=== PATIENT | female | born 1950 | race Caucasian/White ===

== ENCOUNTER 2024-09-23 13:52 | Outpatient (AMB) | payer OTHER, SELFPAY ==
--- NOTE | 2024-09-23 14:19 | PD.ORTHCLVIS ---
Vital signs 09/23/24 14:20 Height 1.63 m Height Method Stated Weight 78.982 kg Weight Measurement Method Standing Scale BMI 29.9 BP 162/94 H Blood Pressure Source Automatic Cuff Blood Pressure Location Right Upper Arm Position Sitting Respiration 18 Pulse 64 Pulse Source Monitor Temp 98.4 F Temp Source Temporal Artery Scan Pulse Oximetry (%) 97 Oxygen Delivery Method Room Air Med/Allergies Allergies & Medications Allergies No Known Allergies Allergy (Verified 09/23/24 14:21) Medication Reconciliation ibuprofen 600 mg tablet 600 mg PO Q8H PRN pain (scale score 4-6) #15 tabs 08/05/24 [Rx Confirmed 09/23/24] Exam Exam Patient is in no acute distress and is cooperative with the examination today. Breathing is nonlabored. In no respiratory distress. Bilateral extremities were evaluated and demonstrates sensation intact to light touch. Palpable pedal pulses are present. No significant edema is present. Bilateral hips were examined. The patient has no pain with log roll of the hips. Internal rotation to 30 degrees and external rotation to 30 degrees is painless. Negative FADIR. The left knee was examined. The left knee is in varus alignment. Range of motion from 0-115 degrees. Knee is stable to varus and valgus as well as AP translation with <5mm. Patient has a negative McMurrays. There is no pain with patellofemoral compression and no crepitus noted. The knee is tender to palpation medially. The right knee was also examined. The right knee is in varus alignment. Range of motion from 0-120 degrees. Knee is stable to varus and valgus as well as AP translation with <5mm. Patient has a negative McMurrays. There is no pain with patellofemoral compression and no crepitus noted. The knee is tender to palpation medially. X-rays demonstrate bilateral knee arthritis of significant severity. These are nonweightbearing films Assessment and Plan Problem List (1) Degenerative arthritis of knee, bilateral: Status: Acute Plan: Patient is a 74-year-old female with bilateral knee pain and bilateral knee arthritis. We discussed nonoperative and operative options. Given the failure of conservative management. We discussed total knee replacement a reasonable option. She has not had bilateral knee injections and we can try this first. We would need to get authorization for this we will see her back once we get authorization Advanced Care Planning Discussion Advance care planning discussed with:: patient Office Procedures GNS Level of Care Nursing/Assessment Patient Status: Established Patient Nursing Assessment/Reassesment: Medication Reconciliation, Update PMH in EMR and Vital Signs Coordination of Care: Complex Care and Chronic Disease 1-5, Education Complex Pt/Fam, Consent,records obtained, informed consent, Results/Orders obtained and Staff clarify orders Established Patient Charge Established Patient Point Assignment: 95 Established Patient Point Charge: EP Level 3 (80-115) MA Intake Visit Data Collection New Patient or Established: Established Patient (seen at [facility] within 3 years) Reason for Visit:: BILATERAL KNEE PAIN Seen by Clinical Staff ONLY (RN/MA): No Verbal consent obtained for Telemed visit?: No Transactional Paralegal Required: No PCP or OBGYN visit in last 3 months: Yes Hx Now: No Do You Feel Safe at Home: Yes Authorities Contacted: N/A Questionairres Past Medical History Past Medical History Have you ever been diagnosed with any of the following: Neurological Problems Seizures: No Multiple Sclerosis: Yes Cardiology Problems Hypercholesterolemia: Yes Congestive Heart Failure: No Hypertension: Yes (chooses not to take meds) Respiratory Problems Chronic Obstructive Pulmonary Disease (COPD): No Stomache/Intestinal Problems Hepatitis: No Genital/Urinary Problems Renal Disease: No Musculoskeletal Problems Arthritis: Yes Endocrine Problems Diabetes Mellitus Type 1: No Diabetes Mellitus Type 2: No Other Problems Hospitalization: No Shingles: No Blood Transfusions: No Blood Transfusion Reaction: No Anesthesia Reactions: No Measles: Yes Cancer: No Subjective Visit Visit for: new patient and knee Immunization / Flu Flu Vaccine in the Last 12 Months: No Flu Vaccine Exclusion Criteria: No Exclusion Criteria History of Present Illness Chief complaint: BILATERAL KNEE PAIN Winifred is a pleasant 74-year-old female with bilateral knee pain worse on the right. We discussed nonoperative and operative options. The pain has been ongoing for over a year. She has tried Tylenol arthritis and ibuprofen. She has not had any injections. She is interested in trying it. Personal History Occupation: UNEMPLOYED Red flag PMH: none BMI Counceling provided: No Pain Pain level (0-10): 8 Pain duration: ALL DAY Pain location: inside (medial), outside (lateral), anterior and posterior Pain quality: sharp, dull and aching Pain timing: increases with activity Associated signs & symptoms: stiffness Ambulatory data Ambulatory device: cane Treatments Improvement with previous injections: No Improvement with PT: No Improvement with NSAIDS: no Review of Systems Review of Systems: All systems negative unless otherwise noted in HPI.
[2024-09-23 14:20] VITALS: BP 162/94; PULSE 64; RESP 18; TEMP 36.9; O2SAT 97; BMI 29.9
== END 2024-09-23 14:56 | disposition home or self-care (01) ==
LOC: HODSRG 13:52
PROVIDERS: PCP Nurse Practitioner Family; Referring Provider Nurse Practitioner Family; Supervising Provider Orthopaedic Surgery Adult Reconstructive Orthopaedic Surgery; Visit Provider Orthopaedic Surgery Adult Reconstructive Orthopaedic Surgery
DX: M17.0 Bilateral primary osteoarthritis of knee (principal); M25.562 Pain in left knee; M25.561 Pain in right knee; I10 Essential (primary) hypertension; E78.00 Pure hypercholesterolemia, unspecified
CPT/HCPCS: 99213; G0463

== ENCOUNTER 2024-11-11 14:08 | Outpatient (AMB) | payer OTHER, SELFPAY ==
[2024-11-11 14:26] VITALS: BP 180/90; PULSE 71; RESP 18; TEMP 36.5; O2SAT 97; BMI 29.6
--- NOTE | 2024-11-11 14:26 | ORTHONT_ITS ---
Vital signs 11/11/24 14:26 Height 1.63 m Height Method Stated Weight 78.727 kg Weight Measurement Method Standing Scale BMI 29.6 BP 180/90 H Blood Pressure Source Automatic Cuff Blood Pressure Location Left Upper Arm Position Sitting Respiration 18 Pulse 71 Pulse Source Monitor Temp 97.7 F Temp Source Temporal Artery Scan Pulse Oximetry (%) 97 Oxygen Delivery Method Room Air Med/Allergies Allergies & Medications Allergies No Known Allergies Allergy (Verified 11/11/24 14:30) Medication Reconciliation ibuprofen 600 mg tablet 600 mg PO Q8H PRN pain (scale score 4-6) #15 tabs 08/05/24 [Rx Confirmed 11/11/24] Exam Exam Patient is in no acute distress and is cooperative with the examination today. Breathing is nonlabored. In no respiratory distress. Bilateral extremities were evaluated and demonstrates sensation intact to light touch. Palpable pedal pulses are present. No significant edema is present. Bilateral hips were examined. The patient has no pain with log roll of the hips. Internal rotation to 30 degrees and external rotation to 30 degrees is painless. Negative FADIR. The left knee was examined. The left knee is in varus alignment. Range of motion from 0-115 degrees. Knee is stable to varus and valgus as well as AP translation with <5mm. Patient has a negative McMurrays. There is no pain with nguyen llofemoral compression and no crepitus noted. The knee is tender to palpation medially. The right knee was also examined. The right knee is in varus alignment. Range of motion from 0-120 degrees. Knee is stable to varus and valgus as well as AP translation with <5mm. Patient has a negative McMurrays. There is no pain with patellofemoral compression and no crepitus noted. The knee is tender to palp ation medially. X-rays demonstrate bilateral knee arthritis of significant severity. Assessment and Plan Problem List (1) Degenerative arthritis of knee, bilateral: Status: Acute Plan: Patient is a 74-year-old female with bilateral knee pain and bilateral knee arthritis. The right knee pain is affecting her quality life and happiness. We thus discussed total knee replacement as a reasonable option The nature and purpose of the total knee replacement, alternative method(s) of treatment, the material risks involved, and the possibility of complications were fully explained to the patient. The patient does NOT have any of the following contraindications to TKA: - Active infection of the knee joint, OR - Active systemic bacteremia, OR - Active skin infection or open wound at surgical site, OR - Neuropathic arthritis, OR - Severe, rapidly progressive neurological disease, OR - Severe medical condition that makes risks of surgery outweigh the potential benefit The patient was told the most common risks and complications associated with a total knee replacement include, but are not limited to: blood clots in the leg, fatal pulmonary embolism, dislocation of the prosthesis, intraoperative and postoperative fractures of the femur or tibia, infection, failure of the prosthesis or grafting materials, complications from anesthesia, reactions to blood transfusions, postoperative leg length inequality, instability of the knee replacement, nerve damage or injury, vascular injury, delayed wound healing, infection, other injury or even . In addition, there are risks associated with anesthesia given during this operation. Also, the patient was told that after undergoing a total knee replacement there may still be persistent pain or disability. The patient was informed that the success of this operation in part depends upon the mechanical devices which are going to be implanted and that these devices can fail or malfunction, and may need to be repaired or replaced and there are no guarantees as to the longevity of this device or its parts and that it or its parts could fail prematurely. The patient was also notified that during the course of surgery, there may be a need to use bone graft from donors, and that any bone graft used will be carefully screened for communicable diseases, including AIDS, hepatitis, Wilfrid-Creutzfeldt, or other diseases, but despite the screening procedures, there is a small chance that they could contract one of these diseases. Finally, the patient was asked to follow completely and fully with all advice and recommended treatments, and that recovery and ultimate outcome are affected by their compliance with recommended treatment. We discussed the risks, benefits and treatment alternatives, and the patient is interested in proceeding with surgery. We will try to set this up as expeditiously as possible. Advanced Care Planning Discussion Advance care planning discussed with:: patient Office Procedures GNS Level of Care Nursing/Assessment Patient Status: Established Patient Nursing Assessment/Reassesment: Medication Reconciliation, Update PMH in EMR and Vital Signs Coordination of Care: Complex Care and Chronic Disease 1-5, Education Complex Pt/Fam, Consent,records obtained, informed consent, Results/Orders obtained and Staff clarify orders Established Patient Charge Established Patient Point Assignment: 95 Established Patient Point Charge: EP Level 3 (80-115) MA Intake Visit Data Collection New Patient or Established: Established Patient (seen at [facility] within 3 years) Reason for Visit:: PRE OP R TKA Seen by Clinical Staff ONLY (RN/MA): No PCP or OBGYN visit in last 3 months: Yes Hx Now: No Do You Feel Safe at Home: Yes Authorities Contacted: N/A Questionairres Past Medical History Past Medical History Have you ever been diagnosed with any of the following: Neurological Problems Seizures: No Multiple Sclerosis: Yes Cardiology Problems Hypercholesterolemia: Yes Congestive Heart Failure: No Hypertension: Yes (chooses not to take meds) Respiratory Problems Chronic Obstructive Pulmonary Disease (COPD): No Stomache/Intestinal Problems Hepatitis: No Genital/Urinary Problems Renal Disease: No Musculoskeletal Problems Arthritis: Yes Endocrine Problems Diabetes Mellitus Type 1: No Diabetes Mellitus Type 2: No Other Problems Hospitalization: No Shingles: No Blood Transfusions: No Blood Transfusion Reaction: No Anesthesia Reactions: No Measles: Yes Cancer: No Subjective Visit Visit for: follow up visit and knee Immunization / Flu Flu Vaccine in the Last 12 Months: No Flu Vaccine Exclusion Criteria: No Exclusion Criteria History of Present Illness Chief complaint: BILATERAL KNEE PAIN Winifred is a pleasant 74-year-old female with bilateral knee pain worse on the right. We discussed nonoperative and operative options. The pain has been ongoing for over a year. She has tried Tylenol arthritis and ibuprofen. Personal History Occupation: UNEMPLOYED Red flag PMH: none BMI Counceling provided: No Pain Pain level (0-10): 8 Pain duration: ALL DAY Pain location: inside (medial), outside (lateral) and anterior Pain quality: dull and aching Pain timing: night, increases with activity and stairs Associated signs & symptoms: stiffness Ambulatory data Ambulatory device: none Treatments Improvement with previous injections: No Improvement with PT: No Improvement with NSAIDS: no Review of Systems Review of Systems: All systems negative unless otherwise noted in HPI.
== END 2024-11-11 14:43 | disposition home or self-care (01) ==
LOC: HODSRG 14:08
PROVIDERS: PCP Family Medicine; Referring Provider Family Medicine; Supervising Provider Orthopaedic Surgery Adult Reconstructive Orthopaedic Surgery; Visit Provider Orthopaedic Surgery Adult Reconstructive Orthopaedic Surgery
DX: M17.0 Bilateral primary osteoarthritis of knee (principal); M25.562 Pain in left knee; M25.561 Pain in right knee; I10 Essential (primary) hypertension; E78.00 Pure hypercholesterolemia, unspecified; G35 Multiple sclerosis
CPT/HCPCS: 99213; G0463

== ENCOUNTER → 2024-11-11 | Outpatient (CLI) | payer OTHER, MEDICAID, SELFPAY ==
--- NOTE | 2024-11-11 | XR_ITS ---
Examination: CT right lower extremity, without contrast. 2-D sagittal reconstructions. 2-D coronal reconstructions. 3-D reconstructions. Date and time of exam:November 11, 2024 1717 hrs. Indications: Diagnosis right knee osteoarthritis, knee pain beginning 2014 CTDI: vol (mGy):11.8 DLP: (mGycm):564 Technique: Multiple 1.25 mm axial sections of the right lower extremity without intravenous contrast have been obtained. 2-D sagittal and coronal reconstructions have been obtained. 3-D reconstructions have been obtained. Low dose protocols were performed. One or more of the following dose reduction techniques were used; automated exposure control, adjustment of the mA and/or KV according to patient size, use of iterative reconstruction technique. Findings: Prominent osteopenia Mild narrowing right hip joint No right hip fracture or dislocation Advanced right knee tricompartment osteoarthritis, severe narrowing patellofemoral joint, moderate to severe narrowing medial joint space No fracture Impression: Advanced right knee tricompartment osteoarthritis including severe narrowing patellofemoral joint
== END | disposition home or self-care (01) ==
LOC: CDIM 15:19
PROVIDERS: PCP Family Medicine; Referring Provider Orthopaedic Surgery Adult Reconstructive Orthopaedic Surgery; Visit Provider Orthopaedic Surgery Adult Reconstructive Orthopaedic Surgery
DX: M17.11 Unilateral primary osteoarthritis, right knee (principal); M25.861 Other specified joint disorders, right knee
CPT/HCPCS: 73700

== ENCOUNTER → 2024-11-24 | Day surgery (SDC) | payer OTHER, MEDICAID, SELFPAY ==
[2024-11-19 09:42] LABS: Basophils # (Auto) 0.1 Thou/mm3 (0.0-0.2); Basophils % (Auto) 1 % (0-2.5); Eosinophils # (Auto) 0.2 Thou/mm3 (0.0-0.5); Eosinophils % (Auto) 2 % (0-10); Hemoglobin 15.4 g/dL (12.0-16.0); Immature Granulocytes % (Auto) 0 % (0-0); Immature Granulocytes Auto 0.03 Thou/mm3 (0.00-0.00); Lymphocytes # (Auto) 3.2 Thou/mm3 (1.0-4.8); Lymphocytes % (Auto) 40 % (10-50); Mean Corpuscular HGB Conc 34.2 g/dl (31.0-37.0); Mean Corpuscular Volume 88 fL (80-100); Monocytes # (Auto) 0.8 Thou/mm3 (0.0-0.8); Monocytes % (Auto) 10 % (0-12); Neutrophils # (Auto) 3.9 Thou/mm3 (1.8-7.7); Neutrophils % (Auto) 48 % (37-80); Nucleated Red Blood Cell % 0 /100 WBC (0); Platelet Count 259 Thou/mm3 (140-440); RDW Standard Deviation 39.1 fL (36.4-46.3); Red Blood Count 5.13 Miln/mm3 (4.00-5.20); White Blood Count 8.1 Thou/mm3 (3.6-11.0)
[2024-11-19 09:55] LABS: Partial Thromboplastin Time 27.8 Seconds (22.0-36.0); Prothrombin Time 11.1 Seconds (9.0-12.2)
[2024-11-19 09:56] LABS: Alanine Aminotransferase 26 U/L (10-49); Albumin, Serum 4.3 gm/dL (3.4-4.8); Albumin/Globulin Ratio 1.5 (1.2-2.2); Alkaline Phosphatase 56 U/L (46-116); Anion Gap 5 (7-16); Aspartate Amino Transferase 23 U/L (0-34); BUN/Creatinine Ratio 12 Ratio (12-20); Bilirubin,Total 0.5 mg/dL (0.3-1.2); Blood Urea Nitrogen 11 mg/dL (9-23); Calcium 10.1 mg/dL (8.3-10.6); Calcium (Corrected) 10.1 mg/dL (8.5-10.1); Carbon Dioxide 30.2 mMol/L (20.0-31.0); Chloride 107 mMol/L (98-107); Creatinine (Component) 0.9 mg/dL (0.6-1.3); Estimated Creatinine Clearance 57.6 mL/min (>60); Globulin 2.8 gm/dL (2.3-3.5); Glucose 105 mg/dL (74-106); Osmolality,Calculated 282 (275-295); Sodium 142 mMol/L (136-145); Total Protein 7.1 gm/dL (5.7-8.2); eGFR > 60 See Note
[2024-11-24 06:25] VITALS: BP 207/103; PULSE 58; RESP 16; TEMP 36.7; O2SAT 97; BMI 29.7
[2024-11-24] MEDS: MELOXICAM 7.5 MG TABLET PO (06:38)
[2024-11-24] MEDS: PREGABALIN 75 MG CAPSULE PO (06:38)
[2024-11-24] MEDS: ACETAMINOPHEN 325 MG TABLET 650 MG PO (06:38)
[2024-11-24] MEDS: RINGERS LACTATED 1000 ML 1,000 ML 20 ML IV (06:40)
--- NOTE | 2024-11-24 07:30 | SUR.PREOP ---
Procedure cancelled by Dr. Jackson and Dr. Ignacio due to high BP. Patient states her BP always runs high and that her primary care doctor is aware. States she had been prescribed something for her high BP but that she doesn't take it because she doesn't like the way it makes her feel. States that her PCP is also aware of this and that she chooses to drink beet juice for her BP instead. Dr. Ignacio and Dr. Jackson both made her aware that she needs to see her PCP to be referred to a wheel and pinion inspector regarding her high BP. Acknowledged physicians instructions and agrees to see her PCP for referral and clearance.
--- NOTE | 2024-11-24 07:35 | PD.ORTHPN ---
Exam Vital Signs Temp Pulse Resp BP Pulse Ox 98.1 F 58 L 16 207/103 H 97 11/24/24 06:25 11/24/24 06:25 11/24/24 06:25 11/24/24 06:25 11/24/24 06:25 Objective - Ortho Labs 11/19/24 09:25 11/19/24 09:25 Assessment & Plan Diagnosis (1) Hypertension: Status: Acute Assessment Additional comments: Patient is a 74yo female scheduled for a r TKA. Her blood pressure was found to be over 190-200 over 100s. We discussed that she needs to see her PCP and a cardiolgist as it is significantly high. We discussed she should go to the ER should she have blurry vision, headaches, or any pain. Anesthesia did not feel comfortable proceeding with elective surgery at this blood pressure.
--- NOTE | 2024-11-24 12:10 | ESPR_ITS ---
Documentation for date of: 11/24/24 BRIEF ANESTHESIA PRE-OP NOTE: This patient was scheduled for R TKA with Dr Ignacio today but it was cancelled due to significantly high BP. Pre-op, she has h/o chronic HTN and she reported she does not take any anti-HTN meds. Her pre-op BP by RN was 207/103 checked at forearm. She has h/o L arm surgery and she reported BP cuff gets too tight on her right arm and was hesitant to get it checked there. I attempted to check it at R and L forearm and the machine would pressure up to 240s and then not give a reading. Her BP at the surgeon's office in last month is documented at 180/90. She denied any chest pains/pressure, headache, endorsed feeling slight anxious due to upcoming surgery, but was she was otherwise alert, NAD, grossly non-focal. Her family visitor was at bedside. I discussed her BP with the surgeon and offered to provide sedation then re- check her BP, then the surgeon also came and assessed the patient with her visitor at bedside, and all together decided to cancel her surgery and the surgeon instructed the patient to see PCP and mentioned getting cardiac clearance. I educated the patient that uncontrolled BP could pose risk to her health including risk of stroke and heart attack and she should see her PCP for anti- HTN meds and she should consider going to ER if she feels symptoms from her high BP which I educated her about and she and her visitor at bedside agreed with the cancellation and the follow up. Lazaro Jackson MD Anesthesia Progress Note Progress Note Most recent Vital Signs: Last Vital Signs Temp 98.1 F 11/24/24 06:25 Pulse 58 L 11/24/24 06:25 Resp 16 11/24/24 06:25 BP 207/103 H 11/24/24 06:25 Pulse Ox 97 11/24/24 06:25
== END | disposition home or self-care (01) ==
LOC: S2EX 05:49
PROVIDERS: Anesthesiology; PCP Family Medicine; Referring Provider Orthopaedic Surgery Adult Reconstructive Orthopaedic Surgery; Visit Provider Orthopaedic Surgery Adult Reconstructive Orthopaedic Surgery
PROC: (CPT 27447; principal; 2024-11-24 07:30)
DX: M17.0 Bilateral primary osteoarthritis of knee (principal); I10 Essential (primary) hypertension; Z53.9 Procedure and treatment not carried out, unspecified reason
CPT/HCPCS: 27447; 36415; 80053; 85025; 85610; 85730; J0690; J1100; J2704; J2795; J7120; J7999; A9270

== ENCOUNTER → 2025-01-16 | Outpatient (CLI) | payer OTHER, MEDICAID, SELFPAY ==
--- NOTE | 2025-01-16 13:40 | XR_ITS ---
Examination: Bone densitometry Date and time of exam:January 16, 2025 1339 hours INDICATIONS: Menopause age 54 Technique: Lumbar spine and hip total bone mineralization values of an calculated. Peak reference and age match control results have been displayed. Findings: Lumbar spine total bone mineralization is1.117 gm/cm2. This is 0.6 standard deviations above peak reference. This is 2.9 standard deviations above age-matched controls. Hip total bone mineralization is 0.877 gm/cm2 This is 0.5 standard deviations below peak reference. This is 1.1 standard deviations above age-matched controls Impression: There is normal mineralization based on lumbar spine measurements. There is osteopenia based on hip measurements Lumbar mineralization is increased 1.7% compared with March 28, 2019 Hip mineralization is increased 1.6% compared with March 28, 2019
== END | disposition home or self-care (01) ==
LOC: CDIM 13:07
DX: Z13.820 Encounter for screening for osteoporosis (principal); M85.88 Other specified disorders of bone density and structure, other site
CPT/HCPCS: 77080

== ENCOUNTER 2025-03-05 09:19 | Outpatient (AMB) | payer OTHER, SELFPAY ==
[2025-03-05 09:53] VITALS: BP 135/85; PULSE 80; RESP 18; TEMP 36.3; O2SAT 96; BMI 29.9
--- NOTE | 2025-03-05 09:53 | ORTHONT_ITS ---
Vital signs 03/05/25 09:53 Height 1.63 m Height Method Stated Weight 79.435 kg Weight Measurement Method Standing Scale BMI 29.9 BP 135/85 H Blood Pressure Source Automatic Cuff Blood Pressure Location Right Lower Arm Position Sitting Respiration 18 Pulse 80 Pulse Source Monitor Temp 97.3 F Temp Source Temporal Artery Scan Pulse Oximetry (%) 96 Oxygen Delivery Method Room Air Med/Allergies Allergies & Medications Allergies No Known Allergies Allergy (Verified 03/05/25 09:58) Medication Reconciliation acetaminophen 500 mg tablet (Acetaminophen Extra Strength) 500 mg PO Q6H PRN pain 11/19/24 [History Confirmed 03/05/25] Exam Exam Patient is in no acute distress and is cooperative with the examination today. Breathing is nonlabored. In no respiratory distress. Bilateral extremities were evaluated and demonstrates sensation intact to light touch. Palpable pedal pulses are present. No significant edema is present. Bilateral hips were examined. The patient has no pain with log roll of the hips. Internal rotation to 30 degrees and external rotation to 30 degrees is painless. Negative FADIR. The left knee was examined. The left knee is in varus alignment. Range of motion from 0-115 degrees. Knee is stable to varus and valgus as well as AP translation with <5mm. Patient has a negative McMurrays. There is no pain with patellofemoral compression and no crepitus noted. The knee is tender to palpation medially. The right knee was also examined. The right knee is in varus alignment. Range of motion from 0-120 degrees. Knee is stable to varus and valgus as well as AP translation with <5mm. Patient has a negative McMurrays. There is no pain with patellofemoral compression and no crepitus noted. The knee is tender to palpation medially. X-rays demonstrate bilateral knee arthritis of significant severity. Assessment and Plan Problem List (1) Degenerative arthritis of knee, bilateral: Status: Acute Plan: Patient is a 74-year-old female with bilateral knee pain and bilateral knee arthritis. The right knee pain is affecting her quality life and happiness. We thus discussed total knee replacement as a reasonable option She is cleared medically now The nature and purpose of the total knee replacement, alternative method(s) of treatment, the material risks involved, and the possibility of complications were fully explained to the patient. The patient does NOT have any of the following contraindications to TKA: - Active infection of the knee joint, OR - Active systemic bacteremia, OR - Active skin infection or open wound at surgical site, OR - Neuropathic arthritis, OR - Severe, rapidly progressive neurological disease, OR - Severe medical condition that makes risks of surgery outweigh the potential benefit The patient was told the most common risks and complications associated with a total knee replacement include, but are not limited to: blood clots in the leg, fatal pulmonary embolism, dislocation of the prosthesis, intraoperative and postoperative fractures of the femur or tibia, infection, failure of the prosthesis or grafting materials, complications from anesthesia, reactions to blood transfusions, postoperative leg length inequality, instability of the knee replacement, nerve damage or injury, vascular injury, delayed wound healing, infection, other injury or even . In addition, there are risks associated with anesthesia given during this operation. Also, the patient was told that after undergoing a total knee replacement there may still be persistent pain or disability. The patient was informed that the success of this operation in part depends upon the mechanical devices which are going to be implanted and that these devices can fail or malfunction, and may need to be repaired or replaced and there are no guarantees as to the longevity of this device or its parts and that it or its parts could fail prematurely. The patient was also notified that during the course of surgery, there may be a need to use bone graft from donors, and that any bone graft used will be carefully screened for communicable diseases, including AIDS, hepatitis, Wilfrid-Creutzfeldt, or other diseases, but despite the screening procedures, there is a small chance that they could contract one of these diseases. Finally, the patient was asked to follow completely and fully with all advice and recommended treatments, and that recovery and ultimate outcome are affected by their compliance with recommended treatment. We discussed the risks, benefits and treatment alternatives, and the patient is interested in proceeding with surgery. We will try to set this up as expeditiously as possible. Advanced Care Planning Discussion Advance care planning discussed with:: patient Office Procedures GNS Level of Care Nursing/Assessment Patient Status: Established Patient Nursing Assessment/Reassesment: Medication Reconciliation, Update PMH in EMR and Vital Signs Coordination of Care: Complex Care and Chronic Disease 1-5, Education Complex Pt/Fam, Consent,records obtained, informed consent, Results/Orders obtained and Staff clarify orders Established Patient Charge Established Patient Point Assignment: 95 Established Patient Point Charge: EP Level 3 (80-115) MA Intake Visit Data Collection New Patient or Established: Established Patient (seen at [facility] within 3 years) Reason for Visit:: FOLLOW UP KNEE Seen by Clinical Staff ONLY (RN/MA): No PCP or OBGYN visit in last 3 months: Yes Hx Now: No Do You Feel Safe at Home: Yes Authorities Contacted: N/A Questionairres Past Medical History Past Medical History Have you ever been diagnosed with any of the following: Neurological Problems Seizures: No Multiple Sclerosis: No Cardiology Problems Hypercholesterolemia: Yes (chooses not to take meds) Congestive Heart Failure: No Hypertension: Yes (chooses not to take meds) Respiratory Problems Chronic Obstructive Pulmonary Disease (COPD): No Smoking: No Smoking Exposure: No Stomache/Intestinal Problems Hepatitis: No Genital/Urinary Problems Renal Disease: No Reproductive Problems Previous Pregnancies: Yes (4) Musculoskeletal Problems Arthritis: Yes Endocrine Problems Diabetes Mellitus Type 1: No Diabetes Mellitus Type 2: No Other Problems Hospitalization: No Shingles: No Blood Transfusions: No Blood Transfusion Reaction: No Anesthesia Reactions: No Measles: Yes Cancer: No Subjective Visit Visit for: follow up visit and knee Immunization / Flu Flu Vaccine in the Last 12 Months: No Flu Vaccine Exclusion Criteria: No Exclusion Criteria History of Present Illness Chief complaint: BILATERAL KNEE PAIN Winifred is a pleasant 74-year-old female with bilateral knee pain worse on the right. We discussed nonoperative and operative options. The pain has been ongoing for over a year. She has tried Tylenol arthritis and ibuprofen. Her surgery was previously canceled for hypertensive urgency. Her blood pressure is now well-controlled and she would like to proceed. We sent her to her medical doctor and the blood pressure is now well-controlled Personal History Occupation: UNEMPLOYED Red flag PMH: none BMI Counceling provided: No Pain Pain level (0-10): 5 Pain duration: COMES AND GOES Pain location: anterior Pain quality: dull and aching Pain timing: increases with activity Associated signs & symptoms: weakness Ambulatory data Ambulatory device: other (specify) (BRACE) Treatments Improvement with previous injections: No Improvement with PT: No Improvement with NSAIDS: no Review of Systems Review of Systems: All systems negative unless otherwise noted in HPI.
== END 2025-03-05 10:06 | disposition home or self-care (01) ==
LOC: HODSRG 09:19
PROVIDERS: Supervising Provider Orthopaedic Surgery Adult Reconstructive Orthopaedic Surgery; Visit Provider Orthopaedic Surgery Adult Reconstructive Orthopaedic Surgery
DX: M17.0 Bilateral primary osteoarthritis of knee (principal); M25.562 Pain in left knee; M25.561 Pain in right knee; I10 Essential (primary) hypertension; E78.00 Pure hypercholesterolemia, unspecified
CPT/HCPCS: 99213; G0463

== ENCOUNTER 2025-03-23 08:10 | Day surgery (SDC) | payer MEDICARE, SELFPAY ==
[2025-03-18 08:39] VITALS: BMI 30.1
[2025-03-18 10:34] LABS: Basophils # (Auto) 0.1 Thou/mm3 (0.0-0.2); Basophils % (Auto) 1 % (0-2.5); Eosinophils # (Auto) 0.1 Thou/mm3 (0.0-0.5); Eosinophils % (Auto) 1 % (0-10); Hematocrit 41.7 % (36.0-46.0); Hemoglobin 14.2 g/dL (12.0-16.0); Immature Granulocytes Auto 0.02 Thou/mm3 (0.00-0.00); Lymphocytes # (Auto) 3.6 Thou/mm3 (1.0-4.8); Lymphocytes % (Auto) 40 % (10-50); Mean Corpuscular HGB Conc 34.1 g/dl (31.0-37.0); Mean Corpuscular Hemoglobin 30.1 pg (25.0-35.0); Mean Corpuscular Volume 88 fL (80-100); Monocytes # (Auto) 0.9 Thou/mm3 (0.0-0.8); Monocytes % (Auto) 10 % (0-12); Neutrophils # (Auto) 4.2 Thou/mm3 (1.8-7.7); Neutrophils % (Auto) 47 % (37-80); Nucleated Red Blood Cell # 0.00 Thou/mm3 (0.00-0.00); Nucleated Red Blood Cell % 0 /100 WBC (0); Platelet Count 314 Thou/mm3 (140-440); RDW Standard Deviation 39.2 fL (36.4-46.3); Red Blood Count 4.72 Miln/mm3 (4.00-5.20); White Blood Count 9.0 Thou/mm3 (3.6-11.0)
[2025-03-18 10:45] LABS: INR 1.0 (0.9-1.3); Partial Thromboplastin Time 28.9 Seconds (22.0-36.0); Prothrombin Time 11.4 Seconds (9.0-12.2)
[2025-03-18 10:47] LABS: Alanine Aminotransferase 22 U/L (10-49); Albumin, Serum 4.3 gm/dL (3.4-4.8); Albumin/Globulin Ratio 1.5 (1.2-2.2); Alkaline Phosphatase 62 U/L (46-116); Anion Gap 5 (7-16); Aspartate Amino Transferase 23 U/L (0-34); BUN/Creatinine Ratio 11 Ratio (12-20); Bilirubin,Total 0.6 mg/dL (0.3-1.2); Blood Urea Nitrogen 11 mg/dL (9-23); Calcium 9.6 mg/dL (8.3-10.6); Calcium (Corrected) 9.6 mg/dL (8.5-10.1); Carbon Dioxide 29.9 mMol/L (20.0-31.0); Chloride 109 mMol/L (98-107); Creatinine (Component) 1.0 mg/dL (0.6-1.3); Estimated Creatinine Clearance 51.9 mL/min (>60); Globulin 2.9 gm/dL (2.3-3.5); Glucose 114 mg/dL (74-106); Osmolality,Calculated 287 (275-295); Potassium 3.8 mMol/L (3.4-5.1); Sodium 144 mMol/L (136-145); Total Protein 7.2 gm/dL (5.7-8.2); eGFR 60 See Note
[2025-03-23] VITALS (16 sets, daily range): BP systolic 127–161; BP diastolic 68–86; PULSE 62–91; RESP 12–19; TEMP 36.2–36.8; O2SAT 94–98; BMI 31.0; BMI 13.0
[2025-03-23] MEDS: RINGERS LACTATED 1000 ML 1,000 ML 100 ML IV (12:05)
[2025-03-23] MEDS: ACETAMINOPHEN 325 MG TABLET 650 MG PO (13:44)
[2025-03-23] MEDS: MELOXICAM 7.5 MG TABLET PO (13:44)
[2025-03-23] MEDS: PREGABALIN 75 MG CAPSULE PO (13:44)
--- NOTE | 2025-03-23 16:00 | XR_ITS ---
Examination: Right knee 2 views TECHNIQUE: AP lateral right knee 2 views Date and time: March 23, 2025 1655 hours INDICATIONS: Postop knee replacement today. FINDINGS: Total right knee arthroplasty. Satisfactory alignment. Moderate osteopenia IMPRESSION: Total right knee arthroplasty with satisfactory alignment
--- NOTE | 2025-03-23 16:02 | ESOP_ITS ---
Date of Procedure 03/23/25 Pre Op Diagnosis right knee osteoarthritis Post Op Diagnosis right knee osteoarthritis Procedure right total knee replacement tyler Findings full thickness cartilage loss and ostoephytes Procedure Description Indication: The patient is a 74 year old who has a long history of right knee pain. X-rays show degenerative arthritis involving the knee. Over the past several years the patient has had increasing pain, progressive limitation in function. He has failed conservative measures including activity modification, physical therapy, injections, anti-inflammatories, and assistive devices. After a lengthy discussion of the risks and benefits, the patient presents now for total knee replacement. The nature and purpose of the total knee replacement, alternative method(s) of treatment, the material risks involved, and the possibility of complications were fully explained to the patient. The patient was told the most common risks and complications associated with a total knee replacement include, but are not limited to blood clots in the leg, fatal pulmonary embolism, dislocation of the prosthesis, intraoperative and postoperative fractures of the femur or tibia, infection, failure of the prosthesis or grafting materials, complications from anesthesia, reactions to blood transfusions, postoperative leg length inequality, instability of the knee replacement, nerve damage or injury, vascular injury, delayed wound healing, infections, other injury or even . In addition, there are risks associated with anesthesia given during this operation, temporary or permanent numbness on the skin lateral to the incision can be a complication unique to total knee surgery, and kneeling can be painful after knee replacement surgery. Also, the patient was told that after undergoing a total knee replacement there may still be pain or disability. We discussed with the patient that we will be using a robot-assisted technology. We discussed that there is a possibility of converting to manual instrumentation. The patient was informed that the success of this operation in part depends upon the mechanical devices which are going to be implanted and that these devices can fail or malfunction, and may need to be repaired or replaced and there are no guarantees as to the longevity of this device or its part and that it or its parts could fail prematurely. Finally, the patient was asked to follow completely and fully with all advice and recommended treatments, and that recovery and ultimate outcome are affected by their compliance with recommended treatment. Surgical technique: Patient was marked and consented in the pre-operative area. The patient was brought to the operating room and placed on the operating table in a supine position. Prior to positioning, a timeout procedure was performed between the surgeon, the anesthesiologist, and the nursing staff where the patient and the operative side were identified and confirmed. After adequate general anesthetic was obtained, the right lower extremity was prepped and draped in the usual sterile fashion. A weight based dose of Cefazolin were administered within 1 hour prior to incision. The robot was preregistered and calirated before the incision. The extremity was exsanguinated with an esmarch badge and tourniquet inflated to 250mmHg. A midline incision was made. A median parapatellar arthrotomy was made. The patella was subluxed laterally. A medial release was performed to expose the medial tibia. His femoral and tibial pins were placed through an intra incisional manner for both cases. Every effort was made to ensure that the distalmost aspect of the pin was hung in the second cortex. The arrays were then tightened several times to ensure that it was fixed for the remainder of the case. Both femoral and tibial checkpoints were then placed. We then went through the registration process of the bone. We then assessed the knee deformity and attempted to correct it. We also used the robot to aid in judging laxity in both extension and flexion. Final based on laxity and alignment we changed the preoperative assessment to obtain proper proper implant positioning and to correct deformity. Attention was then placed to the tibia. We made a tibial cut using the robot ensuring that both the MCL and the patella tendon were protected with retractors. We then went to the femur and made the posterior cut followed by the anterior cut and the anterior chamfer. The bone was then removed and we made a distal femur cut and a posterior chamfer cut. We verified all cuts. A trial reduction was performed with a size 3 femoral component and a size 3 keeled tibial component. The patella was cut and sized to a 31. The patella tracked centrally, and no lateral retinacular release was necessary. The trial implants were removed. The arrays, pins, and checkpoints were all removed. We performed a verification that all pins were removed. The cut bone surfaces were lavaged. A size 3 right femoral component, a size 3 keeled tibial component, and a size 31 patella were impacted into position. The knee was felt to be well balanced in the sagittal and coronal plane. The final 3x10 mm cruciate-substituting articular insert was impacted into the tibial tray. The knee was brought out to full extension, flexed up to 120 degrees. It was stable to varus and valgus stress and appropriately balanced in flexion and extension. The wounds were copiously irrigated following deflation of tourniquet. The medial retinaculum was reapproximated with #1 vicryl and quill. The subcutaneous tissues were closed with 0 and 2-0 interrupted Vicryl. The skin was closed with 3-0 Monofilament V loc suture. A sterile dressing was applied. The patient was transferred to a bed and brought to recovery in stable condition. The patient tolerated the procedure well. There were no intraoperative complications. Sponge and needle counts were correct times 2. As the attending surgeon, I attest I was present and performed the entire operation. Grafts/Implants Size 3 CR Femur Size 3 Tibia 10mm poly CS 31mm patella Anesthesia GETA Implants ira Pathology / specimen None Pathology comment: none Estimated Blood Loss 150 Condition Stable Disposition same day Surgeon Aroldo Ignacio MD Surgical Staff Operation Date: 03/23/25 14:30 Case Staff Anesthesiologist: Lazaro Jackson RNanesthesia technician: Patricia Coto
--- NOTE | 2025-03-23 16:26 | SUR.PHASEI ---
1626: Pt. arrived with nasal airway in place, vitals stable, breathing unlabored, no complaint of pain or nausea, dressing to right knee CDI, no active bleed noted, bilateral dorsalis pedis pulses strong and regular, cap refill to bilateral feet less than 3 seconds, report received from MD Jackson and Kaycee ADORNO.
--- NOTE | 2025-03-23 18:25 | SUR.PHASEII ---
Pt. tired, attempted to get pt. stimulated by talking to her, feeding her food and soda, pt. refusing everything. Pt. stating she wants to go home, however she is not taking steps to try to wake up, told pt. that she needs to start waking up soon if she wants to go home due to physical therapy being here at hospital for only so long, pt. verbalized understanding and went back to sleep. Notified Katerin PT that pt. is tired and just wanting to sleep, per Katerin, she is going to come up here and try to get the pt. up and walking.
--- NOTE | 2025-03-23 19:02 | SUR.PHASEII ---
Katerin PT. attempted to walk pt. Pt. sat up in bed with assist, stood up with assist to walker, and then stated she was too dizzy. Pt. was unsteady standing, Katerin PT stated she will let pt. rest and we will try again in an hour.
[2025-03-23] MEDS: ONDANSETRON INJ 2 MG/ML INJ 2 ML 4 MG IVP (19:05)
[2025-03-23] MEDS: ACETAMINOPHEN IVPB 1,000 MG/100 ML VIAL 250 MG IV (19:53)
--- NOTE | 2025-03-23 21:00 | SUR.PHASEII ---
2100: Pt. AAOx4, vitals stable, breathing unlabored, no complaint of pain or nausea, dressing to right knee CDI, no active bleed noted, pt. tolerated sips of water well, pt. ambulated with physical therapy, tolerated well, gave discharge instructions to the pt. and her ride, both verbalized understanding and had no further questions. Pt. left with all personal belongings.
== END 2025-03-23 21:00 | disposition home or self-care (01) ==
PROVIDERS: Anesthesiology; PCP Family Medicine; Referring Provider Orthopaedic Surgery Adult Reconstructive Orthopaedic Surgery; Visit Provider Orthopaedic Surgery Adult Reconstructive Orthopaedic Surgery
PROC: (CPT 27447; principal; 2025-03-23 14:15)
DX: M17.11 Unilateral primary osteoarthritis, right knee (principal); M25.761 Osteophyte, right knee
CPT/HCPCS: 27447; 20985; 36415; 73560; 80053; 85025; 85610; 85730; 97163; A4217; C1713; C1776; J0131; J0690; J1100; J1171; J2250; J2405; J2704; J2795; J3010; J3490; J7120; J7999; A4648; A4649; A9270; J1805

== ENCOUNTER 2025-04-09 13:06 | Outpatient (AMB) | payer MEDICARE, SELFPAY ==
--- NOTE | 2025-04-09 13:13 | ORTHONT_ITS ---
Vital signs 04/09/25 13:14 Height 1.6 m Height Method Stated Weight 76.204 kg Weight Measurement Method Standing Scale BMI 29.7 BP 86/62 L Blood Pressure Source Automatic Cuff Blood Pressure Location Left Upper Arm Position Sitting Respiration 18 Pulse 100 Pulse Source Monitor Temp 97.7 F Temp Source Temporal Artery Scan Pulse Oximetry (%) 98 Oxygen Delivery Method Room Air Med/Allergies Allergies & Medications Allergies No Known Allergies Allergy (Verified 04/09/25 13:15) Medication Reconciliation amlodipine 10 mg tablet 10 mg PO DAILY 03/18/25 [History Confirmed 04/09/25] atorvastatin 10 mg tablet 10 mg PO DAILY 03/18/25 [History Confirmed 04/09/25] cetirizine 10 mg tablet (Zyrtec) 10 mg PO QDAY PRN allergy symptoms 03/18/25 [History Confirmed 04/09/25] lisinopril 30 mg tablet 30 mg PO DAILY 03/18/25 [History Confirmed 04/09/25] acetaminophen 500 mg tablet (Acetaminophen Extra Strength) 1,000 mg (2 x 500 mg) PO Q6H PRN pain #90 tabs 03/23/25 [Rx Confirmed 04/09/25] aspirin 81 mg tablet,delayed release 81 mg PO BID #60 tabs 03/23/25 [Rx Confirmed 04/09/25] doxycycline hyclate 100 mg tablet 100 mg PO BID #14 tabs 03/23/25 [Rx Confirmed 04/09/25] gabapentin 300 mg capsule 300 mg PO .qhs #30 caps 03/23/25 [Rx Confirmed 04/09/25] oxycodone 5 mg tablet 5 mg PO Q6H PRN pain #28 tabs 03/23/25 [Rx Confirmed 04/09/25] sennosides 8.6 mg-docusate sodium 50 mg tablet (Senna-S) 1 tab-cap PO QDAY #30 tabs 03/23/25 [Rx Confirmed 04/09/25] Exam Exam Patient is in no acute distress and is cooperative with the examination today. Breathing is nonlabored. In no respiratory distress. Bilateral extremities were evaluated and demonstrates sensation intact to light touch. Palpable pedal pulses are present. No significant edema is present. Bilateral hips were examined. The patient has no pain with log roll of the hips. Internal rotation to 30 degrees and external rotation to 30 degrees is painless. Negative FADIR. The left knee was examined. The left knee is in varus alignment. Range of motion from 0-115 degrees. Knee is stable to varus and valgus as well as AP translation with <5mm. Patient has a negative McMurrays. There is no pain with patellofemoral compression and no crepitus noted. The knee is tender to palpation medially. Right knee incision is clean dry and intact Assessment and Plan Problem List (1) Degenerative arthritis of knee, bilateral: Status: Acute Plan: Patient is a 74-year-old female with bilateral knee pain and bilateral knee arthritis. The right knee pain is affecting her quality life and happiness. She is doing well status post right total knee replacement We will see her back in approximately 4 weeks Advanced Care Planning Discussion Advance care planning discussed with:: patient Office Procedures GNS Level of Care Nursing/Assessment Patient Status: Established Patient Nursing Assessment/Reassesment: Medication Reconciliation, Update PMH in EMR and Vital Signs Coordination of Care: Complex Care and Chronic Disease 1-5, Education Complex Pt/Fam, Consent,records obtained, informed consent, Results/Orders obtained and Staff clarify orders Established Patient Charge Established Patient Point Assignment: 95 Established Patient Point Charge: EP Level 3 (80-115) MA Intake Visit Data Collection New Patient or Established: Established Patient (seen at [facility] within 3 years) Reason for Visit:: 2 WEEK R TKA Seen by Clinical Staff ONLY (RN/MA): No PCP or OBGYN visit in last 3 months: Yes Hx Now: No Do You Feel Safe at Home: Yes Authorities Contacted: N/A Questionairres Past Medical History Past Medical History Have you ever been diagnosed with any of the following: Neurological Problems Seizures: No Multiple Sclerosis: No Cardiology Problems Hypercholesterolemia: Yes Congestive Heart Failure: No Hypertension: Yes (started taking meds) Respiratory Problems Chronic Obstructive Pulmonary Disease (COPD): No Smoking: No Smoking Exposure: No Stomache/Intestinal Problems Hepatitis: No Genital/Urinary Problems Renal Disease: No Reproductive Problems Previous Pregnancies: Yes (4) Musculoskeletal Problems Arthritis: Yes Endocrine Problems Diabetes Mellitus Type 1: No Diabetes Mellitus Type 2: No Other Problems Hospitalization: No Shingles: No Blood Transfusions: No Blood Transfusion Reaction: No Anesthesia Reactions: No Measles: Yes Cancer: No Subjective Visit Visit for: follow up visit, post op #1 and knee Immunization / Flu Flu Vaccine in the Last 12 Months: No Flu Vaccine Exclusion Criteria: No Exclusion Criteria History of Present Illness Chief complaint: BILATERAL KNEE PAIN Winifred is a pleasant 74-year-old female with bilateral knee pain worse on the right. She is doing well status post right total knee replacement Personal History Occupation: UNEMPLOYED Red flag PMH: none BMI Counceling provided: No Pain Pain level (0-10): 5 Pain duration: COMES AND GOES Pain location: anterior Pain quality: dull and aching Pain timing: increases with activity Associated signs & symptoms: weakness Ambulatory data Ambulatory device: walker Treatments Improvement with previous injections: No Improvement with PT: No Improvement with NSAIDS: no Review of Systems Review of Systems: All systems negative unless otherwise noted in HPI.
[2025-04-09 13:14] VITALS: BP 86/62; PULSE 100; RESP 18; TEMP 36.5; O2SAT 98; BMI 29.7
== END 2025-04-09 13:17 | disposition home or self-care (01) ==
LOC: HODSRG 13:06
PROVIDERS: PCP Family Medicine; Referring Provider Family Medicine; Supervising Provider Orthopaedic Surgery Adult Reconstructive Orthopaedic Surgery; Visit Provider Orthopaedic Surgery Adult Reconstructive Orthopaedic Surgery
DX: M17.0 Bilateral primary osteoarthritis of knee (principal); M25.562 Pain in left knee; M25.561 Pain in right knee; Z96.651 Presence of right artificial knee joint; I10 Essential (primary) hypertension; E78.00 Pure hypercholesterolemia, unspecified
CPT/HCPCS: 99213; G0463

== ENCOUNTER 2025-04-15 10:30 | Outpatient (RCR) | payer MEDICARE, SELFPAY ==
--- NOTE | 2025-04-10 12:00 | PT.OIERPT ---
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 Pt received a few sessions of homehealth physical therapy. Pt still has pain (6/10) with activities. Pt has limitation with walking, standing, balance, chores, self care, cooking, cleaning, and performing recreational activities. Objective: Right Knee AROM: -12 deg to 79 deg Right Knee PROM: -10 deg to 90 deg Right Knee MMTs: grossly 3-/5 Right Hip MMTs: grossly 3-/5 Active SLR: 90 deg SLS: unable Assessment: Pt demonstrate right knee mobility and strength deficits s/p TKA leading to difficulty with ADLs. Pt will benefit from physical therapy to increase ROM, strength, and work on ambulation. Short Term and Supervisor Inspection And Testing Goals 1) Decrease right knee extension lag to -8 deg in 12 wks to have a better gait mechanic field service 2) Increase right knee flexion AROM to 120 deg in 12 wks to be able to perform squatting activities 3) Increase right knee MMTs grossly to 4/5 in 12 wks to be able to perform stairs and steps 4) Increase right hip MMTs grossly to 4-/5 in 12 wks to be able to walk more than 30 mins 5) Increase SLS to 15 sec in 12 wks to be able to perform self care activities 6) Indep with HEP Treatment Plan 1) Manual Therapy 2) Therapeutic Activities 3) Therapeutic Exercises 4) Modalities (ice, heat) 5) Balance Training 6) Gait Training Frequency and Duration: 2 x wk for 12 wks Certification Dates: 04/10/25 to 07/11/25 Procedure Charges OP PT Eval Mod Complex 30 minutes: Yes
--- NOTE | 2025-04-15 11:04 | PT.ODAYNRPT ---
PT Outpatient Daily Note OP Daily Note Outpatient Physical Therapy Treatment Date: 04/15/25 Visit Reasons: RT tka Post op Subjective: Pt fell a few days ago due to low blood pressure. Pt denies of changes with medication or increase consumption. Pt's knee feels fine and wants to continue physical therapy today. Pt's knee feels stiff, however, has been able to walk around the house without her walker. Objective: Right Knee Flexion AROM: 100 deg Assessment: Pt is slowly progressing with knee flexion AROM which allow her to get on sci fit for a few mins. Towards the end of exercise Pt reported of increase knee pain due to closed chain exercises throughout PT session Plan: Continue with PT Length of Time (minutes) of Treatment: 30 Minutes Procedure Charges Therapeutic Exercise 30 minutes: Yes
== END 2025-04-16 23:59 | disposition home or self-care (01) ==
LOC: CPTX 10:30
PROVIDERS: PCP Orthopaedic Surgery Adult Reconstructive Orthopaedic Surgery; Referring Provider Orthopaedic Surgery Adult Reconstructive Orthopaedic Surgery; Visit Provider Orthopaedic Surgery Adult Reconstructive Orthopaedic Surgery
DX: M25.561 Pain in right knee (principal); R53.1 Weakness; R26.2 Difficulty in walking, not elsewhere classified; R26.89 Other abnormalities of gait and mobility; Z96.651 Presence of right artificial knee joint
CPT/HCPCS: 97110; 97162

== ENCOUNTER 2025-04-27 13:00 | Outpatient (RCR) | payer MEDICARE, SELFPAY ==
--- NOTE | 2025-04-17 14:30 | PT.ODAYNRPT ---
PT Outpatient Daily Note OP Daily Note Outpatient Physical Therapy Treatment Date: 04/17/25 Visit Reasons: RT Tka post op Subjective: No new complaints. Objective: Please see flow sheet for ther ex list. Assessment: Pt demonstrates poor activity tolerance, alternating sitting and standing to maximize participation. Plan: Continue with pOC. Length of Time (minutes) of Treatment: 30 Minutes LIFE TEACHER Service Modifier Method I: Divide the number of min of care provided by the LIFE TEACHER/INVESTMENT OFFICER by the total min of care provided then multiply by 100. If greater than 11 percent modifier is required. Method II: Divide the total time of care provided to patient by 10 (round to the nearest whole number) and add 1 min. to set the minimum time requirement. If treatment total was 60 min., then 10% of 6 min PT CQ modifier applied: CQ Modifier applied Procedure Charges Therapeutic Exercise 30 minutes: Yes
--- NOTE | 2025-04-21 15:09 | PT.ODAYNRPT ---
PT Outpatient Daily Note OP Daily Note Outpatient Physical Therapy Treatment Date: 04/21/25 Visit Reasons: RT Tka post op Subjective: Pt's knee sore and ache. Pt has been walking around inside and outside of the house without walker. Pt's knee hurts more at night. Objective: Right Knee Flexion AROM: 95 deg Assessment: Pt is slowly progressing with knee flexion AROM. Pt instructed to continue sitting knee flexion stretch at home to increase knee flexion AROM; patient performed exercise correctly. Plan: Continue with PT Length of Time (minutes) of Treatment: 30 Minutes Procedure Charges Therapeutic Exercise 30 minutes: Yes
--- NOTE | 2025-04-23 14:01 | PT.ODAYNRPT ---
PT Outpatient Daily Note OP Daily Note Outpatient Physical Therapy Treatment Date: 04/23/25 Visit Reasons: RT Tka post op Subjective: Pt's been able to bend knee more at home. She's been working on the stretches . Objective: Right Knee Flexion AROM: 103 deg Assessment: Pt is progressing with right knee flexion AROM. Pt encouraged to continue HEP at home to increase ROM. Pt further demonstrate improved WB in stance during gait Plan: Continue with PT Length of Time (minutes) of Treatment: 30 Minutes Procedure Charges Therapeutic Exercise 30 minutes: Yes
--- NOTE | 2025-04-27 13:21 | PTNOTE_ITS ---
PT Outpatient Daily Note OP Daily Note Outpatient Physical Therapy Treatment Date: 04/27/25 Visit Reasons: RT Tka post op Subjective: Pt reports R knee is doing ok, c/o pain and shared that she did not sleep well. Objective: Please see flow sheet for ther ex list. Assessment: Pt demonstrates poor activity tolerance due to pain response and decrease endurance. Plan: Continue with POC. Length of Time (minutes) of Treatment: 30 Minutes LOGGING SUPERINTENDENT Service Modifier Method I: Divide the number of min of care provided by the LOGGING SUPERINTENDENT/NATURAL RESOURCES EXTENSION EDUCATOR by the total min of care provided then multiply by 100. If greater than 11 percent modifier is required. Method II: Divide the total time of care provided to patient by 10 (round to the nearest whole number) and add 1 min. to set the minimum time requirement. If treatment total was 60 min., then 10% of 6 min PT CQ modifier applied: CQ Modifier applied Procedure Charges Therapeutic Exercise 30 minutes: Yes
--- NOTE | 2025-05-01 08:39 | PT.ODS1RPT ---
PT OP Progress/Discharge Note Date of Service: 05/01/25 Progress Note/DC Note Progress Note/Discharge Note: DC Note Patient Information Visit Reasons: RT Tka post op Service Discharge Date: 05/01/25 Status Assessment: Pt has been seen for 6 visits (eval + 5 visits). Pt last treated on 04/27/25 and no showed 04/29/25 appt. Pt called to cx all pending PT appt. Pt d/c from care per Pt's request and did not meet set goals in therapy; thank you for your referrals
== END 2025-05-17 23:59 | disposition home or self-care (01) ==
LOC: CPTX 13:00
PROVIDERS: PCP Orthopaedic Surgery Adult Reconstructive Orthopaedic Surgery; Referring Provider Orthopaedic Surgery Adult Reconstructive Orthopaedic Surgery; Visit Provider Orthopaedic Surgery Adult Reconstructive Orthopaedic Surgery
DX: M25.561 Pain in right knee (principal); R53.1 Weakness; R26.2 Difficulty in walking, not elsewhere classified; R26.89 Other abnormalities of gait and mobility; Z96.651 Presence of right artificial knee joint
CPT/HCPCS: 97110

== ENCOUNTER 2025-05-08 14:08 | Outpatient (AMB) | payer MEDICARE, SELFPAY ==
--- NOTE | 2025-05-08 14:23 | PD.ORTHCLVIS ---
Vital signs 05/08/25 14:24 Height 1.6 m Height Method Stated Weight 76.685 kg Weight Measurement Method Standing Scale BMI 29.9 BP 131/76 H Blood Pressure Source Automatic Cuff Blood Pressure Location Right Lower Arm Position Sitting Respiration 20 Pulse 85 Pulse Source Monitor Temp 97.1 F Temp Source Temporal Artery Scan Pulse Oximetry (%) 98 Oxygen Delivery Method Room Air Med/Allergies Allergies & Medications Allergies No Known Allergies Allergy (Verified 05/08/25 14:24) Medication Reconciliation amlodipine 10 mg tablet 10 mg PO DAILY 03/18/25 [History Confirmed 05/08/25] atorvastatin 10 mg tablet 10 mg PO DAILY 03/18/25 [History Confirmed 05/08/25] cetirizine 10 mg tablet (Zyrtec) 10 mg PO QDAY PRN allergy symptoms 03/18/25 [History Confirmed 05/08/25] lisinopril 30 mg tablet 30 mg PO DAILY 03/18/25 [History Confirmed 05/08/25] acetaminophen 500 mg tablet (Acetaminophen Extra Strength) 1,000 mg (2 x 500 mg) PO Q6H PRN pain #90 tabs 03/23/25 [Rx Confirmed 05/08/25] aspirin 81 mg tablet,delayed release 81 mg PO BID #60 tabs 03/23/25 [Rx Confirmed 05/08/25] doxycycline hyclate 100 mg tablet 100 mg PO BID #14 tabs 03/23/25 [Rx Confirmed 05/08/25] gabapentin 300 mg capsule 300 mg PO .qhs #30 caps 03/23/25 [Rx Confirmed 05/08/25] oxycodone 5 mg tablet 5 mg PO Q6H PRN pain #28 tabs 03/23/25 [Rx Confirmed 05/08/25] sennosides 8.6 mg-docusate sodium 50 mg tablet (Senna-S) 1 tab-cap PO QDAY #30 tabs 03/23/25 [Rx Confirmed 05/08/25] Exam Exam Patient is in no acute distress and is cooperative with the examination today. Breathing is nonlabored. In no respiratory distress. Bilateral extremities were evaluated and demonstrates sensation intact to light touch. Palpable pedal pulses are present. No significant edema is present. Bilateral hips were examined. The patient has no pain with log roll of the hips. Internal rotation to 30 degrees and external rotation to 30 degrees is painless. Negative FADIR. The left knee was examined. The left knee is in varus alignment. Range of motion from 0-115 degrees. Knee is stable to varus and valgus as well as AP translation with <5mm. Patient has a negative McMurrays. There is no pain with patellofemoral compression and no crepitus noted. The knee is tender to palpation medially. Right knee incision is clean dry and intact Assessment and Plan Problem List (1) Degenerative arthritis of knee, bilateral: Status: Acute Plan: Patient is a 74-year-old female with bilateral knee pain and bilateral knee arthritis. The right knee pain is affecting her quality life and happiness. She is doing well status post right total knee replacement We will see her back in approximately 6 weeks Advanced Care Planning Discussion Advance care planning discussed with:: patient Office Procedures GNS Level of Care Nursing/Assessment Patient Status: Established Patient Nursing Assessment/Reassesment: Medication Reconciliation, Update PMH in EMR and Vital Signs Coordination of Care: Complex Care and Chronic Disease 1-5, Education Complex Pt/Fam, Consent,records obtained, informed consent, Results/Orders obtained and Staff clarify orders Established Patient Charge Established Patient Point Assignment: 95 Established Patient Point Charge: EP Level 3 (80-115) MA Intake Visit Data Collection New Patient or Established: Established Patient (seen at [facility] within 3 years) Reason for Visit:: 4 WEEK R TKA Seen by Clinical Staff ONLY (RN/MA): No PCP or OBGYN visit in last 3 months: Yes Hx Now: No Do You Feel Safe at Home: Yes Authorities Contacted: N/A Questionairres Past Medical History Past Medical History Have you ever been diagnosed with any of the following: Neurological Problems Seizures: No Multiple Sclerosis: No Cardiology Problems Hypercholesterolemia: Yes Congestive Heart Failure: No Hypertension: Yes (started taking meds) Respiratory Problems Chronic Obstructive Pulmonary Disease (COPD): No Smoking: No Smoking Exposure: No Stomache/Intestinal Problems Hepatitis: No Genital/Urinary Problems Renal Disease: No Reproductive Problems Previous Pregnancies: Yes (4) Musculoskeletal Problems Arthritis: Yes Endocrine Problems Diabetes Mellitus Type 1: No Diabetes Mellitus Type 2: No Other Problems Hospitalization: No Shingles: No Blood Transfusions: No Blood Transfusion Reaction: No Anesthesia Reactions: No Measles: Yes Cancer: No Subjective Visit Visit for: follow up visit, post op #2 and knee Immunization / Flu Flu Vaccine in the Last 12 Months: No Flu Vaccine Exclusion Criteria: No Exclusion Criteria History of Present Illness Chief complaint: 4 WEEK R TKA Winifred is a pleasant 74-year-old female with bilateral knee pain worse on the right. She is doing well status post right total knee replacement Personal History Occupation: UNEMPLOYED Red flag PMH: none BMI Counceling provided: No Pain Pain level (0-10): 5 Pain duration: COMES AND GOES Pain location: anterior Pain quality: dull and aching Pain timing: increases with activity Associated signs & symptoms: weakness Ambulatory data Ambulatory device: walker Treatments Improvement with previous injections: No Improvement with PT: No Improvement with NSAIDS: no Review of Systems Review of Systems: All systems negative unless otherwise noted in HPI.
[2025-05-08 14:24] VITALS: BP 131/76; PULSE 85; RESP 20; TEMP 36.2; O2SAT 98; BMI 29.9
--- NOTE | 2025-05-08 14:24 | XR_ITS ---
Examination: Bilateral AP knees single view Right knee PA lateral axial left 3 views TECHNIQUE: Bilateral AP knees upright single view Right knee upright PA, upright lateral, axial right knee 3 views total 4 views Date and time: May 08, 2025, 1433 hours. INDICATIONS: Status post knee surgery one month ago with knee pain FINDINGS: Moderate osteopenia. Total right knee arthroplasty. Satisfactory alignment. No fracture. No patellar dislocation. Severe narrowing medial joint space left knee Significant osteoarthritis lateral joint space left knee IMPRESSION: Total right knee arthroplasty, satisfactory alignment Severe narrowing medial joint space left knee
== END 2025-05-08 14:29 | disposition home or self-care (01) ==
LOC: HODSRG 14:08
PROVIDERS: PCP Family Medicine; Referring Provider Family Medicine; Supervising Provider Orthopaedic Surgery Adult Reconstructive Orthopaedic Surgery; Visit Provider Orthopaedic Surgery Adult Reconstructive Orthopaedic Surgery
DX: M17.0 Bilateral primary osteoarthritis of knee (principal); M25.562 Pain in left knee; M25.561 Pain in right knee; I10 Essential (primary) hypertension; E78.00 Pure hypercholesterolemia, unspecified
CPT/HCPCS: 73564; 99213; G0463

== ENCOUNTER 2025-07-09 14:50 | Outpatient (AMB) | payer MEDICARE, SELFPAY ==
[2025-07-09 15:15] VITALS: BP 111/80; PULSE 73; RESP 19; TEMP 36.5; O2SAT 98; BMI 30.8
--- NOTE | 2025-07-09 15:15 | PD.ORTHCLVIS ---
Vital signs 07/09/25 15:15 Height 1.6 m Height Method Stated Weight 78.953 kg Weight Measurement Method Standing Scale BMI 30.8 BP 111/80 Blood Pressure Source Automatic Cuff Blood Pressure Location Left Lower Arm Position Sitting Respiration 19 Pulse 73 Pulse Source Monitor Temp 97.7 F Temp Source Temporal Artery Scan Pulse Oximetry (%) 98 Oxygen Delivery Method Room Air Med/Allergies Allergies & Medications Allergies No Known Allergies Allergy (Verified 07/09/25 15:16) Medication Reconciliation amlodipine 10 mg tablet 10 mg PO DAILY 03/18/25 [History Confirmed 07/09/25] atorvastatin 10 mg tablet 10 mg PO DAILY 03/18/25 [History Confirmed 07/09/25] cetirizine 10 mg tablet (Zyrtec) 10 mg PO QDAY PRN allergy symptoms 03/18/25 [History Confirmed 07/09/25] lisinopril 30 mg tablet 30 mg PO DAILY 03/18/25 [History Confirmed 07/09/25] acetaminophen 500 mg tablet (Acetaminophen Extra Strength) 1,000 mg (2 x 500 mg) PO Q6H PRN pain #90 tabs 03/23/25 [Rx Confirmed 07/09/25] aspirin 81 mg tablet,delayed release 81 mg PO BID #60 tabs 03/23/25 [Rx Confirmed 07/09/25] doxycycline hyclate 100 mg tablet 100 mg PO BID #14 tabs 03/23/25 [Rx Confirmed 07/09/25] gabapentin 300 mg capsule 300 mg PO .qhs #30 caps 03/23/25 [Rx Confirmed 07/09/25] oxycodone 5 mg tablet 5 mg PO Q6H PRN pain #28 tabs 03/23/25 [Rx Confirmed 07/09/25] sennosides 8.6 mg-docusate sodium 50 mg tablet (Senna-S) 1 tab-cap PO QDAY #30 tabs 03/23/25 [Rx Confirmed 07/09/25] Exam Exam Patient is in no acute distress and is cooperative with the examination today. Breathing is nonlabored. In no respiratory distress. Bilateral extremities were evaluated and demonstrates sensation intact to light touch. Palpable pedal pulses are present. No significant edema is present. Bilateral hips were examined. The patient has no pain with log roll of the hips. Internal rotation to 30 degrees and external rotation to 30 degrees is painless. Negative FADIR. The left knee was examined. The left knee is in varus alignment. Range of motion from 0-115 degrees. Knee is stable to varus and valgus as well as AP translation with <5mm. Patient has a negative McMurrays. There is no pain with patellofemoral compression and no crepitus noted. The knee is tender to palpation medially. Right knee incision is clean dry and intact X-rays from May 09, 2025 demonstrates a cementless total knee replacement in good alignment and position. There is no evidence of any loosening Assessment and Plan Problem List (1) Degenerative arthritis of knee, bilateral: Status: Acute Plan: Patient is a 74-year-old female with bilateral knee pain and bilateral knee arthritis. The right knee pain is affecting her quality life and happiness. She is doing well status post right total knee replacement We will see her back in approximately 6 months Advanced Care Planning Discussion Advance care planning discussed with:: patient Office Procedures GNS Level of Care Nursing/Assessment Patient Status: Established Patient Nursing Assessment/Reassesment: Medication Reconciliation, Update PMH in EMR and Vital Signs Coordination of Care: Complex Care and Chronic Disease 1-5, Education Complex Pt/Fam, Consent,records obtained, informed consent, Results/Orders obtained and Staff clarify orders Established Patient Charge Established Patient Point Assignment: 95 Established Patient Point Charge: EP Level 3 (80-115) MA Intake Visit Data Collection New Patient or Established: Established Patient (seen at [facility] within 3 years) Reason for Visit:: FOLLOW UP IMAGING Seen by Clinical Staff ONLY (RN/MA): No PCP or OBGYN visit in last 3 months: Yes Hx Now: No Do You Feel Safe at Home: Yes Authorities Contacted: N/A Questionairres Past Medical History Past Medical History Have you ever been diagnosed with any of the following: Neurological Problems Seizures: No Multiple Sclerosis: No Cardiology Problems Hypercholesterolemia: Yes Congestive Heart Failure: No Hypertension: Yes (started taking meds) Respiratory Problems Chronic Obstructive Pulmonary Disease (COPD): No Smoking: No Smoking Exposure: No Stomache/Intestinal Problems Hepatitis: No Genital/Urinary Problems Renal Disease: No Reproductive Problems Previous Pregnancies: Yes (4) Musculoskeletal Problems Arthritis: Yes Endocrine Problems Diabetes Mellitus Type 1: No Diabetes Mellitus Type 2: No Other Problems Hospitalization: No Shingles: No Blood Transfusions: No Blood Transfusion Reaction: No Anesthesia Reactions: No Measles: Yes Cancer: No Subjective Visit Visit for: follow up visit, knee and x-rays Immunization / Flu Flu Vaccine in the Last 12 Months: No Flu Vaccine Exclusion Criteria: No Exclusion Criteria History of Present Illness Chief complaint: 4 WEEK R TKA Winifred is a pleasant 74-year-old female with bilateral knee pain worse on the right. She is doing well status post right total knee replacement. She is 3 months status post right total knee replacement Personal History Occupation: UNEMPLOYED Red flag PMH: none BMI Counceling provided: No Pain Pain level (0-10): 5 Pain duration: COMES AND GOES Pain location: anterior Pain quality: dull and aching Pain timing: increases with activity Associated signs & symptoms: weakness Ambulatory data Ambulatory device: walker Treatments Improvement with previous injections: No Improvement with PT: No Improvement with NSAIDS: no Review of Systems Review of Systems: All systems negative unless otherwise noted in HPI.
== END 2025-07-09 15:36 | disposition home or self-care (01) ==
LOC: HODSRG 14:50
PROVIDERS: PCP Family Medicine; Referring Provider Family Medicine; Supervising Provider Orthopaedic Surgery Adult Reconstructive Orthopaedic Surgery; Visit Provider Orthopaedic Surgery Adult Reconstructive Orthopaedic Surgery
DX: Z47.1 Aftercare following joint replacement surgery (principal); Z96.651 Presence of right artificial knee joint; M25.562 Pain in left knee; M25.561 Pain in right knee; M17.11 Unilateral primary osteoarthritis, right knee; I10 Essential (primary) hypertension
CPT/HCPCS: 99213; G0463